=== PATIENT | male | born 1980 | race American Indian/Alaskan Native ===

== ENCOUNTER 2020-10-04 16:28 | Observation (INO) | payer OTHER ==
--- NOTE | 2020-10-04 16:48 | Emergency Department Report ---
HPI - General Chief Complaint: Syncope Time Seen by Provider: 10/04/20 16:32 - HPI HPI: 39-year-old male with no known past medical history is brought in by EMS after he apparently collapsed behind his apartment. According to the EMS report, the patient recently moved into his apartment a few days ago and neighbors do not know him very well. It is unclear whether he was witnessed collapsing or just found on the ground. Per EMS report, when they arrived the patient was on the ground completely unresponsive and nonverbal. He did have a strong pulse and was oxygenating appropriately. His initial blood pressure was 100/70 but then dropped to 80/50. His fingerstick blood glucose was 248. He was given 1 L of IV fluids with improvement in his blood pressure. On arrival to the emergency department the patient is much more alert and verbal. However he remains with altered mental status and is extremely somnolent. He says that he was walking and passed out without any preceding symptoms. He denies use of alcohol or any other substances. He does say that he was outside today in the hot sun. When asked why he is extremely somnolent and holding his body parts in strange positions, he says that he is in shock because he cannot believe that he passed out. He denies any complaints at this time including headache, vision change, chest pain, neck pain, back pain, abdominal pain, focal weakness, sensory changes, or any other complaints. Nonetheless, details of the HPI are limited by the patient's current clinical condition. ED Past Medical Hx - Past Medical History Previous Medical History?: No - Social History Substance Use Type: None ED Review of Systems ROS: Stated complaint: ALTERED MENTAL STATUS Other details as noted in HPI Comment: Unobtainable due to pts medical conditions Constitutional: denies: chills, fever Eyes: denies: eye pain, vision change ENT: denies: throat pain, congestion Respiratory: denies: cough, shortness of breath Cardiovascular: syncope. denies: chest pain, palpitations Gastrointestinal: denies: abdominal pain, nausea, vomiting Genitourinary: denies: dysuria, frequency Musculoskeletal: denies: back pain, joint swelling Skin: denies: rash, lesions Neurological: denies: headache, weakness, numbness, paresthesias, vertigo Physical Exam - Physical Exam Vital Signs: Vital Signs 07/10/04/20 10/04/20 16:36 16:40 16:46 Pulse Rate 87 72 78 Respiratory 13 12 15 Rate Blood Pressure 130/113 96/62 89/59 O2 Sat by Pulse 97 98 97 Oximetry 10/04/20 10/04/20 10/04/20 16:50 16:56 17:00 Pulse Rate 76 69 74 Respiratory 10 L 14 13 Rate Blood Pressure 85/54 82/53 79/51 O2 Sat by Pulse 97 97 96 Oximetry 10/04/20 10/04/20 10/04/20 17:06 17:10 17:16 Pulse Rate 71 72 80 Respiratory 15 15 15 Rate Blood Pressure 81/49 93/58 105/57 O2 Sat by Pulse 97 96 98 Oximetry 10/04/20 10/04/20 10/04/20 17:20 17:26 17:32 Pulse Rate 72 70 Respiratory 15 15 Rate Blood Pressure 85/51 105/57 105/70 O2 Sat by Pulse 95 98 Oximetry 10/04/20 10/04/20 10/04/20 17:36 17:40 17:46 Pulse Rate 80 77 85 Respiratory 15 19 13 Rate Blood Pressure 97/60 111/63 119/67 O2 Sat by Pulse 97 99 99 Oximetry 10/04/20 10/04/20 10/04/20 17:50 17:56 18:00 Pulse Rate 82 76 79 Respiratory 15 13 14 Rate Blood Pressure 109/65 108/69 118/74 O2 Sat by Pulse 98 98 98 Oximetry 10/04/20 10/04/20 10/04/20 18:06 18:10 18:16 Pulse Rate 78 71 71 Respiratory 13 12 12 Rate Blood Pressure 126/81 113/74 115/82 O2 Sat by Pulse 98 98 98 Oximetry 10/04/20 10/04/20 10/04/20 18:20 18:26 18:30 Pulse Rate 67 84 97 H Respiratory 13 14 13 Rate Blood Pressure 119/77 113/75 119/65 O2 Sat by Pulse 99 99 97 Oximetry 10/04/20 10/04/20 10/04/20 18:36 18:40 18:46 Pulse Rate 91 H 89 84 Respiratory 18 16 14 Rate Blood Pressure 118/76 120/76 130/79 O2 Sat by Pulse 99 97 97 Oximetry 10/04/20 10/04/20 10/04/20 18:50 18:55 19:00 Pulse Rate 80 87 89 Respiratory 13 18 11 L Rate Blood Pressure 138/85 143/93 135/85 O2 Sat by Pulse 98 99 98 Oximetry Physical Exam: GENERAL: Well developed and well nourished. Very somnolent but arousable to loud voice and sternal rub HEAD: Normocephalic. No obvious signs of trauma. ENT: Dry mucous membranes. EYES: Extraocular movements are intact. Pupils are equal round and reactive to light bilaterally NECK: Supple. Full ROM is intact. Trachea is midline. LUNGS: Nonlabored breathing. Equal chest rise bilaterally. Clear to auscultation bilaterally. CARDIOVASCULAR: Regular rate and rhythm. No murmurs or rubs. VASCULAR: 2+ peripheral pulses ABDOMEN: Abdomen is soft and nondistended. There is no significant tenderness, guarding or rebound. SKIN: Skin is warm and dry NEURO: Patient is somnolent and extremely slow to respond to questions or requests. forex trader II-XII grossly intact. No focal deficits. Normal motor and sensory exam throughout. When asked orientation questions the patient is repetitive, saying "Can you put the bed up?" repeatedly. Normal tone throughout. 2+ deep tendon reflexes bilaterally. Downgoing Babinski reflexes bilaterally. MUSCULOSKELETAL: No obvious deformities. No significant tenderness. Normal ROM throughout. BACK/SPINE: No midline tenderness or step-offs of the C/T/L spine. No costovertebral angle tenderness. ED Medical Decision Making - Lab Data Result diagrams: 10/04/20 17:13 10/04/20 17:13 Lab Results 10/04/20 10/04/20 10/04/20 Range/Units 17:13 17:13 17:13 WBC 8.9 (4.5-11.0) K/mm3 RBC 3.94 (3.65-5.03) M/mm3 Hgb 12.8 (11.8-15.2) gm/dl Hct 37.6 (35.5-45.6) % MCV 95 H (84-94) fl MCH 32 (28-32) pg MCHC 34 (32-34) % RDW 13.4 (13.2-15.2) % Plt Count 236 (140-440) K/mm3 Lymph % (Auto) 18.9 (13.4-35.0) % [place] % (Auto) 6.9 (0.0-7.3) % Eos % (Auto) 0.1 (0.0-4.3) % Baso % (Auto) 0.1 (0.0-1.8) % Lymph # (Auto) 1.6 (1.2-5.4) K/mm3 [place] # (Auto) 0.6 (0.0-0.8) K/mm3 Eos # (Auto) 0.0 (0.0-0.4) K/mm3 Baso # (Auto) 0.0 (0.0-0.1) K/mm3 Seg Neutrophils % 74.0 H (40.0-70.0) % Seg Neutrophils # 6.4 (1.8-7.7) K/mm3 PT 15.3 H (12.2-14.9) Sec. INR 1.16 H (0.87-1.13) APTT 29.9 (24.2-36.6) Sec. Sodium 138 (137-145) mmol/L Potassium 3.5 L (3.6-5.0) mmol/L Chloride 103.8 (98-107) mmol/L Carbon Dioxide 23 (22-30) mmol/L Anion Gap 15 mmol/L BUN 24 H (9-20) mg/dL Creatinine 1.3 (0.8-1.3) mg/dL Estimated GFR > 60 ml/min BUN/Creatinine Ratio 18 % Glucose 113 H (75-100) mg/dL POC Glucose (70-105) mg/dL Calcium 8.5 (8.4-10.2) mg/dL Magnesium 1.90 (1.7-2.3) mg/dL Total Bilirubin 0.30 (0.1-1.2) mg/dL Direct Bilirubin < 0.2 (0-0.2) mg/dL Indirect Bilirubin 0.1 mg/dL AST 14 (5-40) units/L ALT 9 (7-56) units/L Alkaline Phosphatase 55 (35-129) units/L Ammonia (25-60) umol/L Total Creatine Kinase (55-170) units/L Troponin T < 0.010 (0.00-0.029) ng/mL Total Protein 6.0 L (6.3-8.2) g/dL Albumin 3.8 L (3.9-5) g/dL Albumin/Globulin Ratio 1.7 % Lipase 15 (13-60) units/L Urine Color (Yellow) Urine Turbidity (Clear) Urine pH (5.0-7.0) Ur Specific D Lo (1.003-1.030) Urine Protein (Negative) mg/dL Urine Glucose (UA) (Negative) mg/dL Urine Ketones (Negative) mg/dL Urine Blood (Negative) Urine Nitrite (Negative) Urine Bilirubin (Negative) Urine Urobilinogen (<2.0) mg/dL Ur Leukocyte Esterase (Negative) Urine WBC (Auto) (0.0-6.0) /HPF Urine RBC (Auto) (0.0-6.0) /HPF U Epithel Cells (Auto) (0-13.0) /HPF Urine Bacteria (Auto) (Negative) /HPF Hyaline Casts /LPF Urine Mucus /HPF Salicylates (2.8-20.0) mg/dL Urine Opiates Screen Urine Methadone Screen Acetaminophen (10.0-30.0) ug/mL Ur Barbiturates Screen Ur Phencyclidine Scrn Ur Amphetamines Screen U Benzodiazepines Scrn Urine Cocaine Screen U Marijuana (THC) Screen Drugs of Abuse Note Plasma/Serum Alcohol (0-0.07) % 10/04/20 10/04/20 10/04/20 Range/Units 17:13 17:13 17:13 WBC (4.5-11.0) K/mm3 RBC (3.65-5.03) M/mm3 Hgb (11.8-15.2) gm/dl Hct (35.5-45.6) % MCV (84-94) fl MCH (28-32) pg MCHC (32-34) % RDW (13.2-15.2) % Plt Count (140-440) K/mm3 Lymph % (Auto) (13.4-35.0) % [place] % (Auto) (0.0-7.3) % Eos % (Auto) (0.0-4.3) % Baso % (Auto) (0.0-1.8) % Lymph # (Auto) (1.2-5.4) K/mm3 [place] # (Auto) (0.0-0.8) K/mm3 Eos # (Auto) (0.0-0.4) K/mm3 Baso # (Auto) (0.0-0.1) K/mm3 Seg Neutrophils % (40.0-70.0) % Seg Neutrophils # (1.8-7.7) K/mm3 PT (12.2-14.9) Sec. INR (0.87-1.13) APTT (24.2-36.6) Sec. Sodium (137-145) mmol/L Potassium (3.6-5.0) mmol/L Chloride (98-107) mmol/L Carbon Dioxide (22-30) mmol/L Anion Gap mmol/L BUN (9-20) mg/dL Creatinine (0.8-1.3) mg/dL Estimated GFR ml/min BUN/Creatinine Ratio % Glucose (75-100) mg/dL POC Glucose (70-105) mg/dL Calcium (8.4-10.2) mg/dL Magnesium (1.7-2.3) mg/dL Total Bilirubin (0.1-1.2) mg/dL Direct Bilirubin (0-0.2) mg/dL Indirect Bilirubin mg/dL AST (5-40) units/L ALT (7-56) units/L Alkaline Phosphatase (35-129) units/L Ammonia 26.0 (25-60) umol/L Total Creatine Kinase (55-170) units/L Troponin T (0.00-0.029) ng/mL Total Protein (6.3-8.2) g/dL Albumin (3.9-5) g/dL Albumin/Globulin Ratio % Lipase (13-60) units/L Urine Color (Yellow) Urine Turbidity (Clear) Urine pH (5.0-7.0) Ur Specific D Lo (1.003-1.030) Urine Protein (Negative) mg/dL Urine Glucose (UA) (Negative) mg/dL Urine Ketones (Negative) mg/dL Urine Blood (Negative) Urine Nitrite (Negative) Urine Bilirubin (Negative) Urine Urobilinogen (<2.0) mg/dL Ur Leukocyte Esterase (Negative) Urine WBC (Auto) (0.0-6.0) /HPF Urine RBC (Auto) (0.0-6.0) /HPF U Epithel Cells (Auto) (0-13.0) /HPF Urine Bacteria (Auto) (Negative) /HPF Hyaline Casts /LPF Urine Mucus /HPF Salicylates < 0.3 L (2.8-20.0) mg/dL Urine Opiates Screen Urine Methadone Screen Acetaminophen 5.0 L (10.0-30.0) ug/mL Ur Barbiturates Screen Ur Phencyclidine Scrn Ur Amphetamines Screen U Benzodiazepines Scrn Urine Cocaine Screen U Marijuana (THC) Screen Drugs of Abuse Note Plasma/Serum Alcohol (0-0.07) % 10/04/20 10/04/20 10/04/20 Range/Units 17:13 17:13 17:53 WBC (4.5-11.0) K/mm3 RBC (3.65-5.03) M/mm3 Hgb (11.8-15.2) gm/dl Hct (35.5-45.6) % MCV (84-94) fl MCH (28-32) pg MCHC (32-34) % RDW (13.2-15.2) % Plt Count (140-440) K/mm3 Lymph % (Auto) (13.4-35.0) % [place] % (Auto) (0.0-7.3) % Eos % (Auto) (0.0-4.3) % Baso % (Auto) (0.0-1.8) % Lymph # (Auto) (1.2-5.4) K/mm3 [place] # (Auto) (0.0-0.8) K/mm3 Eos # (Auto) (0.0-0.4) K/mm3 Baso # (Auto) (0.0-0.1) K/mm3 Seg Neutrophils % (40.0-70.0) % Seg Neutrophils # (1.8-7.7) K/mm3 PT (12.2-14.9) Sec. INR (0.87-1.13) APTT (24.2-36.6) Sec. Sodium (137-145) mmol/L Potassium (3.6-5.0) mmol/L Chloride (98-107) mmol/L Carbon Dioxide (22-30) mmol/L Anion Gap mmol/L BUN (9-20) mg/dL Creatinine (0.8-1.3) mg/dL Estimated GFR ml/min BUN/Creatinine Ratio % Glucose (75-100) mg/dL POC Glucose 101 (70-105) mg/dL Calcium (8.4-10.2) mg/dL Magnesium (1.7-2.3) mg/dL Total Bilirubin (0.1-1.2) mg/dL Direct Bilirubin (0-0.2) mg/dL Indirect Bilirubin mg/dL AST (5-40) units/L ALT (7-56) units/L Alkaline Phosphatase (35-129) units/L Ammonia (25-60) umol/L Total Creatine Kinase 384 H (55-170) units/L Troponin T (0.00-0.029) ng/mL Total Protein (6.3-8.2) g/dL Albumin (3.9-5) g/dL Albumin/Globulin Ratio % Lipase (13-60) units/L Urine Color (Yellow) Urine Turbidity (Clear) Urine pH (5.0-7.0) Ur Specific D Lo (1.003-1.030) Urine Protein (Negative) mg/dL Urine Glucose (UA) (Negative) mg/dL Urine Ketones (Negative) mg/dL Urine Blood (Negative) Urine Nitrite (Negative) Urine Bilirubin (Negative) Urine Urobilinogen (<2.0) mg/dL Ur Leukocyte Esterase (Negative) Urine WBC (Auto) (0.0-6.0) /HPF Urine RBC (Auto) (0.0-6.0) /HPF U Epithel Cells (Auto) (0-13.0) /HPF Urine Bacteria (Auto) (Negative) /HPF Hyaline Casts /LPF Urine Mucus /HPF Salicylates (2.8-20.0) mg/dL Urine Opiates Screen Urine Methadone Screen Acetaminophen (10.0-30.0) ug/mL Ur Barbiturates Screen Ur Phencyclidine Scrn Ur Amphetamines Screen U Benzodiazepines Scrn Urine Cocaine Screen U Marijuana (THC) Screen Drugs of Abuse Note Plasma/Serum Alcohol < 0.01 (0-0.07) % 10/04/20 10/04/20 Range/Units 18:15 18:15 WBC (4.5-11.0) K/mm3 RBC (3.65-5.03) M/mm3 Hgb (11.8-15.2) gm/dl Hct (35.5-45.6) % MCV (84-94) fl MCH (28-32) pg MCHC (32-34) % RDW (13.2-15.2) % Plt Count (140-440) K/mm3 Lymph % (Auto) (13.4-35.0) % [place] % (Auto) (0.0-7.3) % Eos % (Auto) (0.0-4.3) % Baso % (Auto) (0.0-1.8) % Lymph # (Auto) (1.2-5.4) K/mm3 [place] # (Auto) (0.0-0.8) K/mm3 Eos # (Auto) (0.0-0.4) K/mm3 Baso # (Auto) (0.0-0.1) K/mm3 Seg Neutrophils % (40.0-70.0) % Seg Neutrophils # (1.8-7.7) K/mm3 PT (12.2-14.9) Sec. INR (0.87-1.13) APTT (24.2-36.6) Sec. Sodium (137-145) mmol/L Potassium (3.6-5.0) mmol/L Chloride (98-107) mmol/L Carbon Dioxide (22-30) mmol/L Anion Gap mmol/L BUN (9-20) mg/dL Creatinine (0.8-1.3) mg/dL Estimated GFR ml/min BUN/Creatinine Ratio % Glucose (75-100) mg/dL POC Glucose (70-105) mg/dL Calcium (8.4-10.2) mg/dL Magnesium (1.7-2.3) mg/dL Total Bilirubin (0.1-1.2) mg/dL Direct Bilirubin (0-0.2) mg/dL Indirect Bilirubin mg/dL AST (5-40) units/L ALT (7-56) units/L Alkaline Phosphatase (35-129) units/L Ammonia (25-60) umol/L Total Creatine Kinase (55-170) units/L Troponin T (0.00-0.029) ng/mL Total Protein (6.3-8.2) g/dL Albumin (3.9-5) g/dL Albumin/Globulin Ratio % Lipase (13-60) units/L Urine Color Yellow (Yellow) Urine Turbidity Clear (Clear) Urine pH 5.0 (5.0-7.0) Ur Specific D Lo 1.018 (1.003-1.030) Urine Protein 100 mg/dl (Negative) mg/dL Urine Glucose (UA) Neg (Negative) mg/dL Urine Ketones Neg (Negative) mg/dL Urine Blood Neg (Negative) Urine Nitrite Neg (Negative) Urine Bilirubin Neg (Negative) Urine Urobilinogen 2.0 (<2.0) mg/dL Ur Leukocyte Esterase Neg (Negative) Urine WBC (Auto) 6.0 (0.0-6.0) /HPF Urine RBC (Auto) 3.0 (0.0-6.0) /HPF U Epithel Cells (Auto) < 1.0 (0-13.0) /HPF Urine Bacteria (Auto) 1+ (Negative) /HPF Hyaline Casts 1 /LPF Urine Mucus 3+ /HPF Salicylates (2.8-20.0) mg/dL Urine Opiates Screen Negative Urine Methadone Screen Negative Acetaminophen (10.0-30.0) ug/mL Ur Barbiturates Screen Negative Ur Phencyclidine Scrn Negative Ur Amphetamines Screen Negative U Benzodiazepines Scrn Negative Urine Cocaine Screen Negative U Marijuana (THC) Screen Positive Drugs of Abuse Note Disclamer Plasma/Serum Alcohol (0-0.07) % - EKG Data -: EKG Interpreted by [facility] - EKG Data 10/04/20 18:29 Normal sinus rhythm. Normal axis. Normal intervals. No ectopy. No significant ST segment or T wave abnormalities. - Radiology Data CHEST 1 VIEW INDICATION: syncope. COMPARISON: None. FINDINGS: Support devices: None. Heart: Normal. Lungs/Pleura: No acute pulmonary or pleural findings. IMPRESSION: 1. No acute findings. Signer Name: Jimenez Almanzar MD Signed: 10/04/2020 5:16 PM Workstation Name: [id number] CT HEAD WITHOUT CONTRAST INDICATION / CLINICAL INFORMATION: head trauma + LOC PT FOUND UNRESPONSIVE. . TECHNIQUE: All CT scans at this location are performed using CT dose reduction for ALARA by means of automated exposure control. COMPARISON: None available. FINDINGS: HEMORRHAGE: No evidence of intracranial hemorrhage or extra-axial fluid collection. EXTRA-AXIAL SPACES: Cortical sulci, sylvian fissures and basilar cisterns have an unremarkable appearance. VENTRICULAR SYSTEM: The third and lateral ventricles are of normal size and configuration. CEREBRAL PARENCHYMA: No areas of abnormal brain parenchymal attenuation are identified. There is no indication of recent infarction. MIDLINE SHIFT OR HERNIATION: There is no mass effect. CEREBELLUM / BRAINSTEM: Brainstem and cerebellum have an unremarkable appearance. MIDLINE STRUCTURES:No abnormalities of the pituitary gland or pineal region are identified. INTRACRANIAL VESSELS:No abnormalities are identified on this noncontrast head CT. ORBITS: visualized portions of the orbits have an unremarkable appearance. SOFT TISSUES of HEAD: No significant abnormality. CALVARIUM: Evaluation of bone windows reveals no abnormalities. PARANASAL SINUSES / MASTOID AIR CELLS: Retention cysts or polyps are identified at the base of the right maxillary sinus. Paranasal sinuses are otherwise clear. Mastoid air cells are normally pneumatized. IMPRESSION: 1. No significant abnormality is identified on head CT without contrast. Signer Name: Pelon Guadarrama MD Signed: 10/04/2020 4:57 PM Workstation Name: [id number] CT CERVICAL SPINE WITHOUT CONTRAST INDICATION / CLINICAL INFORMATION: PT FOUND UNRESPONSIVE. . TECHNIQUE: Axial CT images were obtained through the cervical spine. Sagittal and coronal reformatted images were produced. All CT scans at this location are performed using CT dose reduction for ALARA by means of automated exposure control. COMPARISON: None available. FINDINGS: ALIGNMENT: Loss of the normal cervical lordosis is noted. No additional abnormalities of alignment are identified. There is no evidence of traumatic subluxation. VERTEBRAE: There is no indication of fracture. DISC SPACES: Disc height is fair ly well-maintained throughout. INDIVIDUAL LEVEL ANALYSIS: C2-3:No abnormality. C3-4: Mild uncovertebral arthropathy is noted. Small posterior osteophyte is observed. Central spinal canal and neuroforamina are adequately maintained. C4- 5: Posterior osteophyte is present. Left worse than right uncovertebral arthropathy is evident with moderate left-sided neuroforaminal stenosis observed at the C5 nerve root level. Central spinal canal and right C5 nerve root neuroforamina are adequately maintained. C5-6: Mild posterior osteophyte is observed. Left worse than right uncovertebral arthropathy is noted. Central spinal canal and neuroforamina are adequately maintained. C6-7: Left worse than right uncovertebral arthritic changes are noted. No additional abnormality. C7- T1:No abnormality. CRANIOCERVICAL JUNCTION:No significant abnormality. SPINAL CANAL: Central spinal canal is adequately maintained throughout. PARASPINAL SOFT TISSUES: No significant abnormality. ADDITIONAL FINDINGS: None. LUNG APICES: No significant abnormality of visualized lungs. IMPRESSION: 1. No indication of fracture or traumatic subluxation. 2. 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 Signer Name: Pelon Guadarrama MD Signed: 10/04/2020 5:14 PM Workstation Name: [id number] - Medical Decision Making 39-year-old male brought in by EMS after he was found to have collapsed behind his apartment. According to the EMS report the patient was unresponsive when he first arrived. His blood pressure dropped to 80/50 and he was given 1 L of IV fluids with improvement of his blood pressure. His fingerstick blood glucose was 248. On initial assessment here he is afebrile (rectal) and with normal vital signs. However, he is extremely somnolent and with bizarre behavior including holding his hands up in front of his face without explanation. He appears intoxicated, but has reactive pupils bilaterally. He has a nonfocal neurologic exam although unable to gauge his orientation because he is repetitive and does not answer all questions. There is no mid spinal tenderness of the C/T/L-spine. There is no obvious musculoskeletal injury. Nonetheless we will perform broad work-up with a full set of labs, EKG, chest x-ray, and CT of the head and C-spine to assess for evidence of intracranial hemorrhage or cervical fracture given fall from standing with LOC. We will give 1 L of IV fluids Shortly after my initial assessment, the nurse informed me that the patient's blood pressure dropped to the 70s systolic. In the room the patient is complaining of neck pain. C-collar was immediately applied. The patient received 1 L of IV fluids from EMS. An additional 2 L of IV fluids were pressure bagged. Given his somnolence, depressed respiratory rate and now hypotension, 0.4 mg of IV Narcan were administered without response. At 6:20 PM, the head CT shows no acute abnormalities. CT of the C-spine reveals no acute abnormalities. The c-collar was cleared and the patient has full painless range of motion at the neck. Despite a significant period of prolonged hypotension, the patient's blood pressure is now stable in the 120s systolic. At 7 PM, the patient is much more alert and able to stand with assistance and participate in conversation. He says that earlier today he passed out after w orking all day outside. He says he felt slightly lightheaded beforehand but had no other preceding symptoms. He does not remember what happened after he felt lightheaded. He says this has never happened to him before. His blood pressure remains stable. Labs have resulted and reveal no significant leukocytosis or anemia. Creatinine is slightly elevated at 1.3 with elevated BUN of 24. Potassium is 3.5. There are no other significant electrolyte abnormalities. Troponin is negative. Urinalysis is negative. UDS is positive only for THC. I spoke to the patient regarding the diagnostic studies including CT imaging, chest x-ray, and labs. Although I expect that the patient's low blood pressure may have been due to prolonged exposure to the high heat outside with significant dehydration, I explained that given his prolonged period of hypotension after arrival in the emergency department, as well as the unclear circumstances and causes of his syncopal episode he will need to be admitted to the hospital for further observation and possible work-up and management. The patient expressed understanding and agreement with this plan of care. Critical Care Time: Yes Critical care time in (mins) excluding proc time.: 50 Critical care attestation.: If time is entered above; I have spent that time in minutes in the direct care of this critically ill patient, excluding procedure time. Critical care time was spent in the assessment/evaluation, work-up, and management of altered mental status and hypotension requiring administration of IV Narcan, pressure bagged IV fluids, labs, x-rays, CT imaging, and frequent reevaluation and reassessment. ED Disposition Clinical Impression: Syncope and collapse, Dehydration, Altered mental state, Hypotension Disposition: [id number] OP ADMIT IP TO THIS HOSP Is pt being admited?: Yes Condition: Fair Instructions: Syncope (ED) Referrals: PRIMARY CARE, [Primary Care Provider] - 3-5 Days
[2020-10-04] MEDS ORDERED: NALOXONE 0.4 MG/1 ML INJ ONE (17:07)
[2020-10-04] MEDS ORDERED: SODIUM CHLORIDE 0.9% 1000 ML 1,000 ML IV ONE (17:16)
[2020-10-04] MEDS: SODIUM CHLORIDE 0.9% 1000 ML 1,000 ML IV ONE ×2 (17:17→20:06)
[2020-10-04] MEDS ORDERED: NALOXONE 0.4 MG/1 ML INJ IV ONE (17:18)
[2020-10-04 17:54] LABS: Hematocrit 37.6 % (35.5-45.6); Hemoglobin 12.8 gm/dl (11.8-15.2); Mean Corpuscular HGB Conc 34 % (32-34); Mean Corpuscular Volume 95 fl (84-94); Platelet Count 236 K/mm3 (140-440); Red Blood Count 3.94 M/mm3 (3.65-5.03); Red Cell Distribution Width 13.4 % (13.2-15.2)
--- NOTE | 2020-10-04 18:02 | Cat Scan Report ---
CT HEAD WITHOUT CONTRAST INDICATION / CLINICAL INFORMATION: head trauma + LOC PT FOUND UNRESPONSIVE. . TECHNIQUE: All CT scans at this location are performed using CT dose reduction for ALARA by means of automated e xposure control. COMPARISON: None available. FINDINGS: HEMORRHAGE: No evidence of intracranial hemorrhage or extra-axial fluid collection. EXTRA-AXIAL SPACES: Cortical sulci, sylvian fissures and basilar cisterns have an unremarkable appear ance. VENTRICULAR SYSTEM: The third and lateral ventricles are of normal size and configuration. CEREBRAL PARENCHYMA: No areas of abnormal brain parenchymal attenuation are identified. There is no i ndication of recent infarction. MIDLINE SHIFT OR HERNIATION: There is no mass effect. CEREBELLUM / BRAINSTEM: Brainstem and cerebellum have an unremarkable appearance. MIDLINE STRUCTURES:No abnormalities of the pituitary gland or pineal region are identified. INTRACRANIAL VESSELS:No abnormalities are identified on this noncontrast head CT. ORBITS: visualized portions of the orbits have an unremarkable appearance. SOFT TISSUES of HEAD: No significant abnormality. CALVARIUM: Evaluation of bone windows reveals no abnormalities. PARANASAL SINUSES / MASTOID AIR CELLS: Retention cysts or polyps are identified at the base of the ri ght maxillary sinus. Paranasal sinuses are otherwise clear. Mastoid air cells are normally pneumatize d. IMPRESSION: 1. No significant abnormality is identified on head CT without contrast. Signer Name: Pelon Guadarrama MD Signed: 10/04/2020 5:57 PM Workstation Name: [id number]
[2020-10-04 18:11] LABS: Alanine Aminotransferase 9 units/L (7-56); Albumin 3.8 g/dL (3.9-5); BUN/Creatinine Ratio 18; Blood Urea Nitrogen 24 mg/dL (9-20); Calcium 8.5 mg/dL (8.4-10.2); Hemolysis Index 6
[2020-10-04 18:17] LABS: INR 1.16 (0.87-1.13)
[2020-10-04 18:18] LABS: Partial Thromboplastin Time 29.9 Sec. (24.2-36.6)
--- NOTE | 2020-10-04 18:19 | Cat Scan Report ---
CT CERVICAL SPINE WITHOUT CONTRAST INDICATION / CLINICAL INFORMATION: PT FOUND UNRESPONSIVE. . TECHNIQUE: Axial CT images were obtained through the cervical spine. Sagittal and coronal reformatted images wer e produced. All CT scans at this location are performed using CT dose reduction for ALARA by means of automated exposure control. COMPARISON: None available. FINDINGS: ALIGNMENT: Loss of the normal cervical lordosis is noted. No additional abnormalities of alignment ar e identified. There is no evidence of traumatic subluxation. VERTEBRAE: There is no indication of fracture. DISC SPACES: Disc height is fairly well-maintained throughout. INDIVIDUAL LEVEL ANALYSIS: C2-3:No abnormality. C3-4: Mild uncovertebral arthropathy is noted. Small posterior osteophyte is observed. Central spinal canal and neuroforamina are adequately maintained. C4-5: Posterior osteophyte is present. Left worse than right uncovertebral arthropathy is evident wit h moderate left-sided neuroforaminal stenosis observed at the C5 nerve root level. Central spinal can al and right C5 nerve root neuroforamina are adequately maintained. C5-6: Mild posterior osteophyte is observed. Left worse than right uncovertebral arthropathy is noted . Central spinal canal and neuroforamina are adequately maintained. C6-7: Left worse than right uncovertebral arthritic changes are noted. No additional abnormality. C7-T1:No abnormality. CRANIOCERVICAL JUNCTION:No significant abnormality. SPINAL CANAL: Central spinal canal is adequately maintained throughout. PARASPINAL SOFT TISSUES: No significant abnormality. ADDITIONAL FINDINGS: None. LUNG APICES: No significant abnormality of visualized lungs. IMPRESSION: 1. No indication of fracture or traumatic subluxation. 2. 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 Signer Name: Pelon Guadarrama MD Signed: 10/04/2020 6:14 PM Workstation Name: [id number]
[2020-10-04 18:20] LABS: Basophils % (Auto) 0.1 % (0.0-1.8); Eosinophils % (Auto) 0.1 % (0.0-4.3); Lymphocytes # (Auto) 1.6 K/mm3 (1.2-5.4); Lymphocytes % (Auto) 18.9 % (13.4-35.0); Monocytes # (Auto) 0.6 K/mm3 (0.0-0.8); Monocytes % (Auto) 6.9 % (0.0-7.3)
--- NOTE | 2020-10-04 18:20 | XRay Report ---
CHEST 1 VIEW INDICATION: syncope. COMPARISON: None. FINDINGS: Support devices: None. Heart: Normal. Lungs/Pleura: No acute pulmonary or pleural findings. IMPRESSION: 1. No acute findings. Signer Name: Jimenez Almanzar MD Signed: 10/04/2020 6:16 PM Workstation Name: [id number]
[2020-10-04 18:24] LABS: Bilirubin,Direct < 0.2 mg/dL (0-0.2)
[2020-10-04 18:58] LABS: Bacteria,Urine 1+ /HPF (Negative); Bilirubin,Urine NEG (Negative); Blood,Urine NEG (Negative); Color,Urine Yellow (Yellow); Hyaline Casts,Urine 1 /LPF; Mucus,Urine 3+ /HPF
[2020-10-04 19:11] LABS: Amphetamine Screen,Urine Negative; Benzodiazepines Screen,Urine Negative; Cocaine Screen,Urine Negative; Methadone Screen,Urine Negative; Opiate Screen,Urine Negative
[2020-10-04 19:28] LABS: Cannabinoid Screen,Urine Positive
[2020-10-04] MEDS ORDERED: POTASSIUM CHLORIDE ER 20 MEQ TAB PO ONE (19:34)
[2020-10-05] MEDS ORDERED: ONDANSETRON 4 MG/2 ML INJ IV PRN ×2 (01:08→01:13)
[2020-10-05] MEDS ORDERED: HYDROmorphone 1 MG/1 ML INJ IV PRN (01:13)
[2020-10-05] MEDS ORDERED: oxyCODONE /ACETAMINOPHEN 5-325MG TAB PO PRN (01:13)
[2020-10-05] MEDS ORDERED: ACETAMINOPHEN 325 MG TAB PO PRN (01:13)
--- NOTE | 2020-10-05 01:19 | History and Physical Report ---
History of Present Illness Date of examination: 10/04/20 Date of admission: 10/04/2020 Chief complaint: Passed out this afternoon History of present illness: 39-year-old male with no significant past medical history was brought in by EMS. Patient apparently passed out behind his apartment. Patient was found on the ground. Patient is unresponsive and nonverbal when EMS arrived. His initial blood pressure 100/78 and had good oxygen saturations and good pulse. Blood g lucose fingerstick was 248. Patient says that he was walking and passed out without any preceding symptoms. In the emergency room during my examination patient is alert and oriented. As per the ED note he was slightly altered during their examination. No chest pain or shortness of breath. No headache. No hematemesis or melena. No fever. No exposure to coronavirus. - Past Medical History Previous Medical History?: No Surgical history No - Social History Substance Use Type: None Family history htn Review of Systems ROS: Stated complaint: ALTERED MENTAL STATUS Other details as noted in HPI Comment: Unobtainable due to pts medical conditions Constitutional: denies: chills, fever Eyes: denies: eye pain, vision change ENT: denies: throat pain, congestion Respiratory: denies: cough, shortness of breath Cardiovascular: syncope. denies: chest pain, palpitations Gastrointestinal: denies: abdominal pain, nausea, vomiting Genitourinary: denies: dysuria, frequency Musculoskeletal: denies: back pain, joint swelling Skin: denies: rash, lesions Neurological: denies: headache, weakness, numbness, paresthesias, vertigo Medications and Allergies Allergies Allergy/AdvReac Type Severity Reaction Status Date / Time No Known Allergies Allergy Verified 10/04/20 17:02 Exam - Constitutional Vitals: Temp Pulse Resp BP Pulse Ox 60 15 93/57 97 10/04/20 22:36 10/04/20 22:36 10/05/20 00:00 10/05/20 00:00 General appearance: Present: no acute distress, well-nourished - EENT Eyes: Present: PERRL ENT: hearing intact, clear oral mucosa - Neck Neck: Present: supple, normal ROM - Respiratory Respiratory effort: normal Respiratory: bilateral: CTA - Cardiovascular Heart rate: 78 Rhythm: regular Heart Sounds: Present: S1 & S2. Absent: rub, click - Extremities Extremities: no ischemia, pulses intact, pulses symmetrical, No edema Peripheral Pulses: within normal limits - Abdominal General gastrointestinal: Present: soft, non-tender, non-distended, normal bowel sounds Male genitourinary: Present: normal - Rectal Rectal Exam: deferred - Integumentary Integumentary: Present: clear, warm, dry - Musculoskeletal Musculoskeletal: gait normal, strength equal bilaterally - Psychiatric Psychiatric: appropriate mood/affect, intact judgment & insight - Neurologic Neurologic: CNII-XII intact, moves all extremities - Allied Health Allied health notes reviewed: nursing, case management HEART Score - HEART Score History: Slightly suspicious Age: < 45 Risk factors: No known risk factors Troponin: Troponin T < 0.010 ng/mL (0.00-0.029) 10/04/20 22:39 Troponin: < normal limit - Critical Actions Critical Actions: 0-3 pts:0.9-1.7%risk of adverse cardiac event.Candidate for discharge Results - Labs CBC & Chem 7: 10/05/20 03:08 10/05/20 03:08 Labs: Laboratory Last Values WBC 8.9 K/mm3 (4.5-11.0) 10/04/20 17:13 RBC 3.94 M/mm3 (3.65-5.03) 10/04/20 17:13 Hgb 12.8 gm/dl (11.8-15.2) 10/04/20 17:13 Hct 37.6 % (35.5-45.6) 10/04/20 17:13 MCV 95 fl (84-94) H 10/04/20 17:13 MCH 32 pg (28-32) 10/04/20 17:13 MCHC 34 % (32-34) 10/04/20 17:13 RDW 13.4 % (13.2-15.2) 10/04/20 17:13 Plt Count 236 K/mm3 (140-440) 10/04/20 17:13 Lymph % (Auto) 18.9 % (13.4-35.0) 10/04/20 17:13 [place] % (Auto) 6.9 % (0.0-7.3) 10/04/20 17:13 Eos % (Auto) 0.1 % (0.0-4.3) 10/04/20 17:13 Baso % (Auto) 0.1 % (0.0-1.8) 10/04/20 17:13 Lymph # (Auto) 1.6 K/mm3 (1.2-5.4) 10/04/20 17:13 [place] # (Auto) 0.6 K/mm3 (0.0-0.8) 10/04/20 17:13 Eos # (Auto) 0.0 K/mm3 (0.0-0.4) 10/04/20 17:13 Baso # (Auto) 0.0 K/mm3 (0.0-0.1) 10/04/20 17:13 Seg Neutrophils % 74.0 % (40.0-70.0) H 10/04/20 17:13 Seg Neutrophils # 6.4 K/mm3 (1.8-7.7) 10/04/20 17:13 PT 15.3 Sec. (12.2-14.9) H 10/04/20 17:13 INR 1.16 (0.87-1.13) H 10/04/20 17:13 APTT 29.9 Sec. (24.2-36.6) 10/04/20 17:13 Sodium 138 mmol/L (137-145) 10/04/20 17:13 Potassium 3.5 mmol/L (3.6-5.0) L 10/04/20 17:13 Chloride 103.8 mmol/L (98-107) 10/04/20 17:13 Carbon Dioxide 23 mmol/L (22-30) 10/04/20 17:13 Anion Gap 15 mmol/L 10/04/20 17:13 BUN 24 mg/dL (9-20) H 10/04/20 17:13 Creatinine 1.3 mg/dL (0.8-1.3) 10/04/20 17:13 Estimated GFR > 60 ml/min 10/04/20 17:13 BUN/Creatinine Ratio 18 % 10/04/20 17:13 Glucose 113 mg/dL (75-100) H 10/04/20 17:13 POC Glucose 101 mg/dL (70-105) 10/04/20 17:53 Calcium 8.5 mg/dL (8.4-10.2) 10/04/20 17:13 Magnesium 1.90 mg/dL (1.7-2.3) 10/04/20 17:13 Total Bilirubin 0.30 mg/dL (0.1-1.2) 10/04/20 17:13 Direct Bilirubin < 0.2 mg/dL (0-0.2) 10/04/20 17:13 Indirect Bilirubin 0.1 mg/dL 10/04/20 17:13 AST 14 units/L (5-40) 10/04/20 17:13 ALT 9 units/L (7-56) 10/04/20 17:13 Alkaline Phosphatase 55 units/L (35-129) 10/04/20 17:13 Ammonia 26.0 umol/L (25-60) 10/04/20 17:13 Total Creatine Kinase 384 units/L (55-170) H 10/04/20 17:13 Troponin T < 0.010 ng/mL (0.00-0.029) 10/04/20 22:39 Total Protein 6.0 g/dL (6.3-8.2) L 10/04/20 17:13 Albumin 3.8 g/dL (3.9-5) L 10/04/20 17:13 Albumin/Globulin Ratio 1.7 % 10/04/20 17:13 Lipase 15 units/L (13-60) 10/04/20 17:13 Urine Color Yellow (Yellow) 10/04/20 18:15 Urine Turbidity Clear (Clear) 10/04/20 18:15 Urine pH 5.0 (5.0-7.0) 10/04/20 18:15 Ur Specific [place] 1.018 (1.003-1.030) 10/04/20 18:15 Urine Protein 100 mg/dl mg/dL (Negative) 10/04/20 18:15 Urine Glucose (UA) Neg mg/dL (Negative) 10/04/20 18:15 Urine Ketones Neg mg/dL (Negative) 10/04/20 18:15 Urine Blood Neg (Negative) 10/04/20 18:15 Urine Nitrite Neg (Negative) 10/04/20 18:15 Urine Bilirubin Neg (Negative) 10/04/20 18:15 Urine Urobilinogen 2.0 mg/dL (<2.0) 10/04/20 18:15 Ur Leukocyte Esterase Neg (Negative) 10/04/20 18:15 Urine WBC (Auto) 6.0 /HPF (0.0-6.0) 10/04/20 18:15 Urine RBC (Auto) 3.0 /HPF (0.0-6.0) 10/04/20 18:15 U Epithel Cells (Auto) < 1.0 /HPF (0-13.0) 10/04/20 18:15 Urine Bacteria (Auto) 1+ /HPF (Negative) 10/04/20 18:15 Hyaline Casts 1 /LPF 10/04/20 18:15 Urine Mucus 3+ /HPF 10/04/20 18:15 Salicylates < 0.3 mg/dL (2.8-20.0) L 10/04/20 17:13 Urine Opiates Screen Negative 10/04/20 18:15 Urine Methadone Screen Negative 10/04/20 18:15 Acetaminophen 5.0 ug/mL (10.0-30.0) L 10/04/20 17:13 Ur Barbiturates Screen Negative 10/04/20 18:15 Ur Phencyclidine Scrn Negative 10/04/20 18:15 Ur Amphetamines Screen Negative 10/04/20 18:15 U Benzodiazepines Scrn Negative 10/04/20 18:15 Urine Cocaine Screen Negative 10/04/20 18:15 U Marijuana (THC) Screen Positive 10/04/20 18:15 Drugs of Abuse Note Disclamer 10/04/20 18:15 Plasma/Serum Alcohol < 0.01 % (0-0.07) 10/04/20 17:13 Short CBC 10/04/20 10/05/20 Range/Units 17:13 03:08 WBC 8.9 10.0 (4.5-11.0) K/mm3 Hgb 12.8 13.2 (11.8-15.2) gm/dl Hct 37.6 38.9 (35.5-45.6) % Plt Count 236 214 (140-440) K/mm3 BMP 10/04/20 10/05/20 17:13 03:08 Sodium 138 139 Potassium 3.5 L 3.7 Chloride 103.8 108.8 H Carbon Dioxide 23 21 L BUN 24 H 18 Creatinine 1.3 1.0 Glucose 113 H 99 Calcium 8.5 8.4 Cardiac Enzymes 10/04/20 10/04/20 10/04/20 Range/Units 17:13 17:13 22:39 Total Creatine Kinase 384 H (55-170) units/L Troponin T < 0.010 < 0.010 (0.00-0.029) ng/mL Liver Function 10/04/20 10/05/20 Range/Units 17:13 03:08 Total Bilirubin 0.30 0.40 (0.1-1.2) mg/dL Direct Bilirubin < 0.2 (0-0.2) mg/dL AST 14 18 (5-40) units/L ALT 9 11 (7-56) units/L Alkaline Phosphatase 55 58 (35-129) units/L Albumin 3.8 L 3.6 L (3.9-5) g/dL Urine 10/04/20 Range/Units 18:15 Urine Color Yellow (Yellow) Urine pH 5.0 (5.0-7.0) Ur Specific [place] 1.018 (1.003-1.030) Urine Protein 100 mg/dl (Negative) mg/dL Urine Glucose (UA) Neg (Negative) mg/dL Microbiology: Microbiology 10/04/20 17:25 Peripheral/Venous Blood Culture - Preliminary Culture in Progress 10/04/20 17:25 Peripheral/Venous Blood Culture - Preliminary Culture in Progress - Imaging and Cardiology EKG: report reviewed (EKG-sinus rhythm no acute ST-T wave changes) Chest x-ray: report reviewed CT Scan - head: report reviewed Imaging and Cardiology: Cervical spine CT no indication of fracture consult traumatic subluxation Widespread degenerative changes with unknown vertebral arthropathy and multifocal posterior osteophyte formation Head CT No acute findings Chest x-ray No acute findings Assessment and Plan Advance Directives: Yes (Full code) VTE prophylaxis?: Chemical Plan of care discussed with patient/family: Yes - Patient Problems (1) Encephalopathy acute Current Visit: Yes Status: Acute Plan to address problem: Transient IV fluids for now No signs and symptoms of stroke (2) Syncope and collapse Current Visit: Yes Status: Acute Plan to address problem: Patient has exposure to heat today for 5 to 6 hours Possible heatstroke IV hydration Carotid duplex scan Echocardiogram for ejection fraction and valvular abnormalities (3) Dehydration Current Visit: Yes Status: Acute Plan to address problem: IV fluids for now (4) Hypotension Current Visit: Yes Status: Acute Plan to address problem: IV fluids for now (5) Discharge planning issues Current Visit: Yes Status: Acute Plan to address problem: Admitted for 23-hour observation If stable and work-up was negative patient can be discharged tomorrow
[2020-10-05 03:42] LABS: Alanine Aminotransferase 11 units/L (7-56); Albumin 3.6 g/dL (3.9-5); BUN/Creatinine Ratio 18; Blood Urea Nitrogen 18 mg/dL (9-20); Calcium 8.4 mg/dL (8.4-10.2); Hemolysis Index 7
[2020-10-05 03:46] LABS: Basophils % (Auto) 0.4 % (0.0-1.8); Eosinophils % (Auto) 0.2 % (0.0-4.3); Hematocrit 38.9 % (35.5-45.6); Hemoglobin 13.2 gm/dl (11.8-15.2); Lymphocytes % (Auto) 20.3 % (13.4-35.0); Mean Corpuscular HGB Conc 34 % (32-34); Mean Corpuscular Volume 96 fl (84-94); Monocytes # (Auto) 0.7 K/mm3 (0.0-0.8); Monocytes % (Auto) 7.3 % (0.0-7.3); Platelet Count 214 K/mm3 (140-440); Red Blood Count 4.06 M/mm3 (3.65-5.03); Red Cell Distribution Width 13.6 % (13.2-15.2)
[2020-10-05 08:25] VITALS: BP 128/60
--- NOTE | 2020-10-05 08:41 | Discharge Summary ---
Providers - Providers Date of Admission: 10/05/20 01:26 Attending physician: JAIME COHEN Primary care physician: [employer] Hospitalization Condition: Fair Exam - Constitutional Vitals: Temp Pulse Resp BP Pulse Ox 60 15 128/60 99 10/04/20 22:36 10/04/20 22:36 10/05/20 07:02 10/05/20 03:06 Plan Follow up with: PRIMARY CAREMD [Primary Care Provider] - 3-5 Days
[2020-10-05] MEDS ORDERED: ENOXAPARIN 40 MG/0.4 ML INJ SUB-Q SCH (10:00)
--- NOTE | 2020-10-06 10:38 | Electrocardiograph Report ---
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
== END 2020-10-05 16:10 | disposition home or self-care (01) ==
LOC: ED 16:28 → 3A 10-05 01:26 → 4A 10-05 06:48
PROVIDERS: ADMIT Hospitalist; ATTEND Internal Medicine
DX: G93.40 Encephalopathy, unspecified (principal); R55 Syncope and collapse; I95.9 Hypotension, unspecified; E86.0 Dehydration; R41.82 Altered mental status, unspecified
CPT/HCPCS: 36415; 70450; 71045; 72125; 80048; 80053; 80076; 80307; 81001; 82140; 82550; 82962; 83690; 83735; 84484; 85025; 85610; 85730; 87040; 93005; 96361; 96374; 99291; G0378; J2310; J7030; 80320; G0480